=== PATIENT | female | born 1985 | race Caucasian/White ===

== ENCOUNTER 2023-01-30 03:22 | Emergency (ER) | payer OTHER ==
[~2023-01-30] VITALS: Ht 175.3 cm; Wt 99.8 kg
--- NOTE | 2023-01-30 03:40 | NUR ---
Patient to ER bed 5 to gown for evaluation. Side rails up. Report given to Ninfa PINEDA(reg).
--- NOTE | 2023-01-30 03:41 | NUR ---
ER Dr.Dela terry at bedside examining patient.
[2023-01-30] MEDS ORDERED: NACL 0.9% 1,000 ML IV ONE (03:45)
[2023-01-30] MEDS ORDERED: ONDANSETRON HCL 4 MG/2 ML VIAL IVP ONE (03:45)
[2023-01-30] MEDS ORDERED: LORazepam 2 MG/ML VIAL IVP ONE (03:45)
--- NOTE | 2023-01-30 04:00 | NUR ---
pt c/o n/v and dizziness. pt on the monitor.
[2023-01-30 04:28] LABS: BASOPHILS # (AUTO) 0.1 K/uL (0.0-0.2); BASOPHILS % (AUTO) 0.6 % (0.0-2.0); EOSINOPHILS # (AUTO) 0.6 K/uL (0.0-0.4); EOSINOPHILS % (AUTO) 3.9 % (0.0-4.0); HEMATOCRIT 45.8 % (36-48); HEMOGLOBIN 15.2 g/dL (12.0-16.0); LYMPHOCYTES # (AUTO) 2.5 K/uL (1.0-5.5); LYMPHOCYTES % (AUTO) 16.7 % (20.5-51.5); MEAN CORPUSCULAR HEMOGLOBIN 30 pg (27-31); MEAN CORPUSCULAR HGB CONC 33 % (32-36); MEAN CORPUSCULAR VOLUME 89 fL (79.0-98.0); MONOCYTES # (AUTO) 1.1 K/uL (0.0-1.0); MONOCYTES % (AUTO) 6.9 % (1.7-9.3); NEUTROPHILS % (AUTO) 71.9 % (40.0-70.0); PLATELET COUNT (AUTO) 310 K/uL (130-430); RED BLOOD CELL COUNT(AUTO) 5.14 MIL/uL (4.2-6.2); RED CELL DISTRIBUTION WIDTH 13.2 % (9.0-15.0); WHITE BLOOD COUNT (AUTO) 15.3 K/uL (4.8-10.8)
[2023-01-30 04:48] LABS: ANION GAP 13 (5-15); CALCIUM 9.1 mg/dL (8.4-11.0); CHLORIDE 101 mmol/L (98-107); CREATININE 0.83 mg/dL (0.55-1.30); GFR AFRICAN AMERICAN 100 mL/min (>90); GLUCOSE 125 mg/dL (70-99); UREA NITROGEN, BLOOD 21 mg/dL (8-21)
[2023-01-30 04:53] LABS: ALANINE AMINOTRANSFERASE 32 U/L (12-78); ALBUMIN 3.9 g/dL (3.4-4.8); ALCOHOL, BLOOD 4 mg/dL (<10); ASPARTATE AMINOTRANSFERASE 25 U/L (10-37); TOTAL BILIRUBIN 0.7 mg/dL (0.0-1.0)
[2023-01-30 04:55] LABS: ACETAMINOPHEN < 1 ug/mL (1-30)
--- NOTE | 2023-01-30 04:57 | NUR ---
per pt she feels better
[2023-01-30] MEDS ORDERED: ONDA-8 TL (06:11)
[2023-01-30] MEDS ORDERED: IBUP-1969 PO (06:11)
--- NOTE | 2023-01-30 09:12 | NUR ---
AMAYA RN CALLED FROM [place], GAVE HER REPORT AND ETA FOR AMBULANCE.
[2023-01-30] MEDS ORDERED: IBUPROFEN 800 MG TABLET PO ONE (09:15)
[2023-01-30] MEDS ORDERED: HYDROcodone/ACETAMIN 10-325 MG TAB PO ONE (09:15)
--- NOTE | 2023-01-30 09:40 | NUR ---
PT MEDICALLY CLEARED FOR DISCHARGE. D/C INSTRUCTIONS GIVEN TO PT. PT TO FOLLOW-UP WITH PCP WITHIN 1-3 DAYS AND TO RETURN TO ED FOR WORSENING S/S. PT VERBALZIED UNDERSTANDING. PT [id number], NAD, WRISTBAND REMOVED. PT AMBULATORY WITH STEADY GAIT. PT LEFT ED WITH ALL BELONGINGS.
[2023-01-30 09:41] VITALS: BP_SYST 135
== END 2023-01-30 09:40 | disposition home or self-care (01) ==
LOC: SED 03:22
DX: G43.909 Migraine, unspecified, not intractable, without status migrainosus (principal); R45.1 Restlessness and agitation; R41.82 Altered mental status, unspecified; Z79.899 Other long term (current) drug therapy
CPT/HCPCS: 99285; 96374; 70450; 96361; 96375; 80053; 84702; 85025; 36415; 76376; 81025; G0482; J2060; J2405; J7030; G0480; G0481